=== PATIENT | female | born 1990 | race Caucasian/White ===

== ENCOUNTER 2020-08-02 09:51 | Emergency (ER) | payer OTHER ==
[~2020-08-02 09:51] MED LIST: TAMIFLU75 MG PO
[2020-08-02 11:08] LABS: HEMOGLOBIN 12.4 gm/dl (12.3-15.3); RED BLOOD COUNT 4.21 M/UL (4.00-5.10); WHITE BLOOD COUNT 11.9 K/UL (4.5-11.0)
[2020-08-02 11:32] LABS: BUN/CREATININE RATIO 14 (0-10)
[2020-08-02] MEDS ORDERED: MACROBID 100 M100 M1 PO (13:19)
[2020-08-02] MEDS ORDERED: MECLIZINE HCL25 MG PO (13:19)
== END 2020-08-02 13:31 | disposition home or self-care (01) ==
LOC: ER1 09:51
PROVIDERS: Physician Assistant
DX: O99.891 Other specified diseases and conditions complicating pregnancy (principal); R55 Syncope and collapse; R42 Dizziness and giddiness; O23.42 Unspecified infection of urinary tract in pregnancy, second trimester; R06.02 Shortness of breath; Z88.1 Allergy status to other antibiotic agents; Z3A.14 14 weeks gestation of pregnancy
CPT/HCPCS: 71045; 80053; 81001; 82550; 82553; 83874; 84484; 85025; 85379; 93005; 99284; J7030

== ENCOUNTER 2020-10-23 14:58 | Outpatient (CLI) | payer OTHER ==
[~2020-10-23 14:58] MED LIST changes: +MACROBID 100 M100 M1 PO; +MECLIZINE HCL25 MG PO
== END 2020-10-23 20:40 | disposition home or self-care (01) ==
LOC: GENOP 14:58
DX: O26.899 Other specified pregnancy related conditions, unspecified trimester (principal); M54.5 Low back pain; Z3A.00 Weeks of gestation of pregnancy not specified
CPT/HCPCS: 81001; 96372; J0696

== ENCOUNTER 2020-11-19 12:57 | Outpatient (CLI) | payer OTHER | END 2020-11-19 18:00 | LOC: GENOP 12:57 | DX: O47.03 False labor before 37 completed weeks of gestation, third trimester (principal); Z98.890 Other specified postprocedural states; Z88.1 Allergy status to other antibiotic agents; Z91.040 Latex allergy status; Z3A.29 29 weeks gestation of pregnancy | CPT/HCPCS: 81001; G0463 ==

== ENCOUNTER 2020-12-05 00:11 | Outpatient (CLI) | payer OTHER | END 2020-12-05 03:22 | LOC: GENOP 00:11 | DX: O47.03 False labor before 37 completed weeks of gestation, third trimester (principal); Z91.040 Latex allergy status; Z88.1 Allergy status to other antibiotic agents; Z3A.31 31 weeks gestation of pregnancy | CPT/HCPCS: 83518; J0702 ==

== ENCOUNTER 2020-12-19 20:58 | Outpatient (CLI) | payer OTHER | END 2020-12-20 09:06 | disposition home or self-care (01) | LOC: GENOP 20:58 → OB 12-20 05:58 → GENOP 12-20 09:06 | DX: O47.03 False labor before 37 completed weeks of gestation, third trimester (principal); O30.043 Twin pregnancy, dichorionic/diamniotic, third trimester; Z91.040 Latex allergy status; Z3A.33 33 weeks gestation of pregnancy | CPT/HCPCS: 81001; 82731; 96360; 96361; 96367; 96372; 96374; J0702; J2300; J2405; J3105 ==

== ENCOUNTER 2021-01-04 07:55 | Inpatient (IN) | payer OTHER ==
[~2021-01-04] VITALS: Ht 160 cm; Wt 83.9 kg
[2021-01-04 09:43] LABS: HEMOGLOBIN 10.6 gm/dl (12.3-15.3); RED BLOOD COUNT 3.83 M/UL (4.00-5.10); WHITE BLOOD COUNT 8.6 K/UL (4.5-11.0)
[2021-01-04] MEDS ORDERED: IBUPROFEN600 MG PO (11:14)
[2021-01-04] MEDS ORDERED: HYDROCODON-ACE1 EAC4 PO (11:14)
[2021-01-04] MEDS ORDERED: DOCUSATE SODIU100 MG PO (11:14)
[2021-01-04] MEDS ORDERED: IRON325 M1 PO (14:23)
[2021-01-04] MEDS ORDERED: PEPCID20 MG PO (14:24)
[2021-01-05 06:21] LABS: HEMOGLOBIN 10.2 gm/dl (12.3-15.3)
== END 2021-01-06 11:44 | disposition home or self-care (01) | DRG 788 ==
LOC: GENOP 07:55 → OB 08:54
PROVIDERS: ADMIT Obstetrics & Gynecology
PROC: 4A1HXCZ Monitoring of Products of Conception, Cardiac Rate, External Approach (ICD-10-PCS; 2021-01-04)
PROC: 10D00Z1 Extraction of Products of Conception, Low, Open Approach (ICD-10-PCS; principal; 2021-01-04 11:31)
DX: O30.043 Twin pregnancy, dichorionic/diamniotic, third trimester (principal); Z3A.36 36 weeks gestation of pregnancy; Z37.2 Twins, both liveborn; Z20.822 Contact with and (suspected) exposure to COVID-19; O42.913 Preterm premature rupture of membranes, unspecified as to length of time between rupture and onset of labor, third trimester
CPT/HCPCS: 36415; 81001; 82800; 83518; 85014; 85018; 85025; 90471; 90715; J1200; J1580; J2274; J2300; J2590; J7120; U0002